=== PATIENT | female | born 1980 | race Caucasian/White ===

== ENCOUNTER 2021-12-06 15:21 | Outpatient (CLI) | payer OTHER | END 2021-12-06 16:00 | disposition home or self-care (01) | LOC: NST 15:21 | PROVIDERS: ATTEND Specialist | DX: Z34.83 Encounter for supervision of other normal pregnancy, third trimester (principal) ==

== ENCOUNTER 2021-12-21 03:36 | Inpatient (IN) | payer OTHER ==
[~2021-12-21] VITALS: Ht 175.3 cm; Wt 3.2 kg
[2021-12-21] MEDS ORDERED: PRENATAL 19 CH1 EAC1 (07:36)
[2021-12-21] MEDS ORDERED: CHILDREN'S ASPI81 MG (07:36)
== END 2021-12-23 13:27 | DRG 788 ==
LOC: LDR 03:36 → SURG-SUITE 03:36 → O/R 10:41 → SURG-SUITE 12:15
PROVIDERS: ADMIT Specialist; ATTEND Specialist
PROC: 4A1HXCZ Monitoring of Products of Conception, Cardiac Rate, External Approach (ICD-10-PCS; 2021-12-21)
PROC: 10D00Z1 Extraction of Products of Conception, Low, Open Approach (ICD-10-PCS; principal; 2021-12-21 13:15)
DX: O99.213 Obesity complicating pregnancy, third trimester (principal); E66.01 Morbid (severe) obesity due to excess calories; Z3A.38 38 weeks gestation of pregnancy; Z37.0 Single live birth; Z20.822 Contact with and (suspected) exposure to COVID-19